=== PATIENT | female | born 1985 | race Hispanic/Latino ===

== ENCOUNTER 2018-08-16 22:25 | Emergency (ER) | payer MEDICAID, SELFPAY ==
[2018-08-16 23:11] LABS: #Basophils 0.1 thou/uL (0.0-0.2); #Eosinphils 0.1 thou/uL (0.0-0.7); #Monocytes 0.6 thou/uL (0.11-0.59); #Neutrophils 4.5 thou/uL (1.40-6.50); %Basophils 0.7 % (0.0-1.0); %Eosinophils 1.8 % (0.0-10.0); %Lymphocytes 36.2 % (21.0-51.0); %Monocytes 6.7 % (0.0-10.0); %Neutrophils 54.6 % (42.0-75.0); Hemoglobin 8.6 g/dL (12.0-16.0); Hypochromia MODERATE=16-30 cells (100X) (0-5/hpf); MDiff Complete? YES; Mean Corpuscular HGB CONC 29.6 g/dL (32.0-36.0); Mean Corpuscular Hemoglobin 19.6 pg (27.0-31.0); Mean Corpuscular Volume 66.3 fL (78.0-98.0); Mean Platelet Volume 8.7 fL (7.4-10.4); Microcytosis MODERATE=15-30 cells (100X) (0-5/hpf); Platelet Count 350 thou/uL (130-400); Platelet Morphology Comment Appears Adequate; Reflex for Review?? NO; White Blood Cell (WBC) Count 8.2 thou/uL (4.8-10.8)
[2018-08-16 23:43] LABS: ALT (SGPT) 11 U/L (8-55); AST (SGOT) 12 U/L (5-34); Albumin 4.1 g/dL (3.5-5.0); Alkaline Phosphatase 71 U/L (40-150); Anion Gap 13 mmol/L (10-20); BUN (Urea Nitrogen) 13 mg/dL (7.0-18.7); Bilirubin, Total 0.3 mg/dL (0.2-1.2); Calc. Creatinine Clearance 0 mL/min (70-130); Carbon Dioxide 22 mmol/L (22-29); Chloride 106 mmol/L (98-107); Estimated GFR-MDRD Greater than 90; Globulin 3.3 g/dL (2.4-3.5); Glucose 95 mg/dL (70-105); Potassium 3.9 mmol/L (3.5-5.1); Protein, Total 7.4 g/dL (6.0-8.3); Sodium 137 mmol/L (136-145)
--- NOTE | 2018-08-16 23:55 | ULT ---
ULTRASOUND PELVIC ULTRASOUND TRANSVAGINAL DOPPLER DUPLEX: DATE: 08/16/2018 TIME: 11:43 p.m. HISTORY: A 32-year-old female with first trimester vaginal bleeding and pelvic pain. TECHNIQUE: Transabdominal transducer used to evaluate intrapelvic contents using the urinary bladder as an acous tic window. Endovaginal transducer used to visualize intrapelvic contents in greater detail. Color fl ow Doppler and Pulsed Doppler spectral waveform analysis of ovaries. FINDINGS: Uterus: 8 x 4 x 5.5 cm. No intrauterine gestational sac visualized in the uterine fundus or corpus. At the lower uterine segment or cervix, there is a 0.3 x 0.5 cm cystic structure, which may or may no t represent an abnormal first trimester gestational sac. No embryonic pole or yolk sac is visualized. At the uterine fundus, the endometrial stripe is at least 1 cm (10 mm) thick and has intermediate ech ogenicity similar to that of myometrium. Tiny amount of free fluid in the cul-de-sac. Right ovary: 3 x 1.3 x 1.1 cm. Left ovary: 2.2 x 1.9 x 3.0 cm. Within the left ovary, there is a 1.5 x 1.0 x 0.9 cm lesion, which has mixed intermediate and low ech ogenicity, which could be a small hemorrhagic cyst. Blood flow demonstrated in both ovaries by Doppler. IMPRESSION: 1. A normal intrauterine gestational sac is not visualized. 2. A tiny cystic structure at the lower uterine segment/cervix may or may not represent a first trim parvez in progress. 3. A small, 1.5 cm, probable hemorrhagic left ovarian cyst. RYLAND Mckeon POS: LIONEL
[2018-08-17 00:46] LABS: Bilirubin Negative (Negative); Blood, Urine Large (Negative); Clarity CLEAR (Clear); Glucose, Urine (Dipstick) Negative (Negative); Leukocyte Small (Negative); Nitrite Negative (Negative); Protein, Urine (Dipstick) Negative (Neg-Trace); Specific Gravity, Urine 1.016 (1.002-1.036); Urobilinogen 0.2 mg/dL (0.2-1.0); pH, Urine 7.5 (5.0-9.0)
[2018-08-17 00:48] LABS: Bacteria/HPF None Seen HPF (None Seen); Hyaline Casts/LPF 0-3 HYALINE CAST LPF (0-3 Hyaline); RBC/HPF GREATER THAN 50-TNTC HPF (0-3); Squamous Epithelial 0-3 HPF (0-3)
== END 2018-08-17 01:40 | disposition home or self-care (01) ==
LOC: ERS 22:25
DX: O20.9 Hemorrhage in early pregnancy, unspecified (principal); Z3A.01 Less than 8 weeks gestation of pregnancy
CPT/HCPCS: 36415; 76856; 80053; 81003; 81015; 84702; 85025; 86900; 86901

== ENCOUNTER 2018-12-09 08:06 | Outpatient (CLI) | payer OTHER ==
--- NOTE | 2018-12-09 09:04 | ULT ---
OB ULTRASOUND: Date: 12/09/18 HISTORY: Size and dates. Cervical length. Anatomy. FINDINGS: Sagittal and transverse imaging of a gravid uterus is performed. FINDINGS: Limited evaluation of the cervix. Shadowing does not allow for adequate evaluation. Posterior placenta. Placental margin appears to be remote from the expected region of the inner cervi rick os. Single intrauterine gestation with heart tones of a rate of 143 beats/minute. Biometry: BPD: 3.75 cm, 17 weeks/4 days HC: 13.82 cm, 17 weeks/2 days AC: 12.01 cm, 17 weeks/5 days FL: 2.40 cm, 17 weeks,2 days Average age by sonography is 17 weeks/4 days. Estimated weight is 196 gm. Amniotic fluid index is 10.66 cm. Anatomy: Visualized normal appearing cerebellum, lateral ventricle, bladder, three vessel cord, sagittal spine , and stomach. Limited evaluation of the four chamber heart, nose/lips, and kidneys. presentation is cephalic. IMPRESSION: 1. Single intrauterine gestation with heart tones. Average age by sonography is 17 weeks/4 day s. 2. Limited evaluation of the cervix due to shadowing. 3. survey as described above. POS: OFF
== END 2018-12-09 08:07 | disposition home or self-care (01) ==
LOC: BICULT 08:06
PROVIDERS: ATTEND Obstetrics & Gynecology
DX: O09.92 Supervision of high risk pregnancy, unspecified, second trimester (principal); Z3A.17 17 weeks gestation of pregnancy
CPT/HCPCS: 76805